=== PATIENT | male | born 2005 | race Caucasian/White ===

== ENCOUNTER 2025-04-18 15:18 | Emergency (ER) | payer SELFPAY ==
[2025-04-18 15:37] VITALS: BP 176/101; PULSE 125; RESP 18; TEMP 36.8; O2SAT 98; BMI 25.8
[2025-04-18 15:38] VITALS: BP 150/85; PULSE 90; RESP 15; TEMP 36.8; O2SAT 99
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
[2025-04-18] MEDS: TET/DIPHTH/PERT-ADULT 0.5ML SYRINGE 0.5 ML IM (16:45)
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
[2025-04-18 17:49] VITALS: BP 182/91; PULSE 111; RESP 16; TEMP 36.9; O2SAT 99
[2025-04-18] MEDS: LIDOCAINE 1% W/EPI 1:100,000 20ML VIAL 20 ML SQ (17:49)
== END 2025-04-18 17:51 | disposition home or self-care (01) ==
PROVIDERS: Emergency Provider Student in an Organized Health Care Education/Training Program
DX: S61.401A Unspecified open wound of right hand, initial encounter (principal); W34.00XA Accidental discharge from unspecified firearms or gun, initial encounter
CPT/HCPCS: 12002; 73130; 90471; 90715; 99284; 99285; J2004